=== PATIENT | male | born 1975 | race Caucasian/White ===

== ENCOUNTER → 2016-03-18 | Day surgery (SDC) | payer BC, OTHER ==
[~2016-03-18] MED LIST: ACETAMINOPHEN 325 MG TAB As Ordered ONE; ACETAMINOPHEN 500 MG TAB PO PRN; ACETYLCYSTEINE 20% 30 ML VIAL As Ordered ONE; ACETYLCYSTEINE 20% 30 ML VIAL XX ONE; ASCO25TA PO; FLON1SPR; GLYCOPYRROLATE INJ 0.2 MG/ML 2 ML VIAL As Ordered ONE; LIDOCAINE 2% INJ 100 MG/5 ML SDV (FOR ANES.) As Ordered ONE; LR 1,000 ML IV SCH; MIDAZOLAM INJ 2 MG/2 ML VIAL (J2250) As Ordered ONE; MULT1CHW39 PO; NEOSTIGMINE 1MG/ML 5 ML SYRINGE (J2710) As Ordered ONE; ONDANSETRON 4MG/2ML VIAL (J2405) As Ordered ONE; ONDANSETRON 4MG/2ML VIAL (J2405) IV PRN; PANT40TA2 PO; PROPOFOL 200 MG/20 ML VIAL As Ordered ONE; RANI15TA PO; ROCURONIUM BROMIDE 50 MG/5 ML VIAL As Ordered ONE; SING10TA32 PO; SYMB80INH INH; fentaNYL 100 MCG/2 ML INJECTION (J3010) As Ordered ONE
--- NOTE | 2016-03-18 10:26 | ROOR ---
Patient Name: Sam Yu Procedure Date: 03/18/2016 8:45 AM Date of : 1975 Age: 40 Gender: Male Note Status: Finalized Procedure: Upper GI endoscopy Indications: For therapy of Puckett's esophagus Providers: Lam DELGADO MD Referring MD: 1. No Referring Physician 1. No Referring Physician, Admin. Requesting Provider: Medicines: General Anesthesia Complications: No immediate complications. Procedure: Pre-Anesthesia Assessment: - The heart rate, respiratory rate, oxygen saturations, blood pressure, adequacy of pulmonary ventilation, and response to care were monitored throughout the procedure. The Endoscope was introduced through the mouth, and advanced to the second part of duodenum. The upper GI endoscopy was accomplished without difficulty. The patient tolerated the procedure well. 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 The maximum longitudinal extent of these mucosal changes was 4 cm in length. Circumferential radiofrequency ablation of Puckett's esophagus was performed using the Barrx 360 Express catheter and balloon-based endoscopic ablation system. With the endoscope in place, the position and extent of the Puckett's mucosa and the anatomic landmarks were noted. Endoscopic visualization identified an ablation site. A guidewire was passed down the biopsy channel of the endoscope. As the endoscope was withdrawn from the mouth, the guidewire was left in place. An auto-sizing radiofrequency ablation balloon catheter was passed transorally over the guidewire into the esophagus. The endoscope was introduced in a [id number] manner with the ablation catheter. Under direct endoscopic visualization, the balloon ablation catheter was positioned appropriately. The balloon was automatically inflated, and energy was applied. The balloon electrode was moved 4 cm distally, so that the proximal edge of the electrode was aligned with the distal edge of the ablation zone. The process of balloon inflation and ablation was repeated until the top of the gastric folds was reached. The ablation catheter and guidewire were removed, and the balloon was cleaned. The ablation zone was then cleaned of overlying coagulative debris using irrigation and suction via the endoscope and a cleaning cap. The guidewire was reinserted, and then the ablation catheter was reintroduced into the esophagus over the wire. The ablation catheter was positioned under direct endoscopic visualization so that the proximal edge of the electrode was at the proximal edge of the ablation zone. Reinflation and a second round of ablation were performed to re-treat the Puckett's epithelium already treated with the first round of ablation. The ablation catheter and guidewire were then removed. The areas of the esophagus where Puckett's mucosa had been ablated were then examined with the endoscope. Evidence of a prior Casey fundoplication was found in the cardia. This was characterized by healthy appearing mucosa. The examined duodenum was normal. Impression: - Esophageal mucosal changes secondary to established long-segment Puckett's disease. Treated with radiofrequency ablation. - A Casey fundoplication was found, characterized by healthy appearing mucosa. - Normal examined duodenum. - No specimens collected. Recommendation: - Continue present medications. - My Office will call you shortly to re-schedule for the next treatment session. Start a full liquid diet today. Eat a soft diet for one week. Continue your usual Reflux medication twice a day indefinitely. You may not need pain medications, but I would recommend you fill the scripts provided, just in case: 1) Viscous Lidocaine 2%- 10 ml every 4 hrs as needed for modeate chest pain. 2) Carafate suspension-10 ml every 6-8 hrs for 1 month. - (the script was sent to your pharmacy on file) Lam Delgado MD Lam DELGADO MD 03/18/2016 10:26:07 AM This report has been signed electronically. Number of Addenda: 0 Note Initiated On: 03/18/2016 8:45 AM Estimated Blood Loss: Estimated blood loss: none.
[2016-03-18 11:10] VITALS: BP 132/87
== END ==
LOC: M SDC 07:31
PROVIDERS: ATTEND Internal Medicine Gastroenterology
DX: K22.70 Barrett's esophagus without dysplasia (principal); K21.9 Gastro-esophageal reflux disease without esophagitis; J44.9 Chronic obstructive pulmonary disease, unspecified; Z87.891 Personal history of nicotine dependence
CPT/HCPCS: 43270; C1769; J2250; J2405; J2710; J3010

== ENCOUNTER → 2016-05-22 | Outpatient (CLI) | payer BC, OTHER ==
[~2016-05-22] MED LIST changes: -ACETAMINOPHEN 325 MG TAB As Ordered ONE; -ACETAMINOPHEN 500 MG TAB PO PRN; -ACETYLCYSTEINE 20% 30 ML VIAL As Ordered ONE; -ACETYLCYSTEINE 20% 30 ML VIAL XX ONE; -GLYCOPYRROLATE INJ 0.2 MG/ML 2 ML VIAL As Ordered ONE; -LIDOCAINE 2% INJ 100 MG/5 ML SDV (FOR ANES.) As Ordered ONE; -LR 1,000 ML IV SCH; -MIDAZOLAM INJ 2 MG/2 ML VIAL (J2250) As Ordered ONE; -NEOSTIGMINE 1MG/ML 5 ML SYRINGE (J2710) As Ordered ONE; -ONDANSETRON 4MG/2ML VIAL (J2405) As Ordered ONE; -ONDANSETRON 4MG/2ML VIAL (J2405) IV PRN; -PROPOFOL 200 MG/20 ML VIAL As Ordered ONE; -ROCURONIUM BROMIDE 50 MG/5 ML VIAL As Ordered ONE; -fentaNYL 100 MCG/2 ML INJECTION (J3010) As Ordered ONE
--- NOTE | 2016-05-24 09:40 | REP ---
MRI LUMBAR SPINE WITHOUT CONTRAST: 05/22/2016 CLINICAL HISTORY: Acute right sided low back pain, sciatica. COMPARISON: X-ray 04/21/2016 and 05/13/2005. TECHNIQUE: Sagittal T1, T2 and STIR images with axial T1-T2 sequences also. FINDINGS: Slight loss of lordosis on the sagittal sequences. There is disc space narrowing at the L3-4 with slight loss of disc water signal. There is more disc space narrowing and loss of disc water signal to a greater extent respectively at L4-5 and L5-S1. The L2-3, L1-2 levels and above maintain height and water signal. Vertebral body heights and marrow signal are normal throughout the lumbar, lower thoracic spine and first two sacral segments. The conus terminates at the T12-L1 level. T10-11, T11-12, T12-L1, L1-2 and L2-3 disc levels show no significant disc bulge herniation and no spinal or foraminal stenosis. At L3-4, there is a mild broad-based disc bulge abutting the L4 nerve roots in the central canal but not significantly displacing them. There is ample cross-sectional area of the canal and foramina are showing only some loss of perineural fat without nerve root compression. Hypertrophic facet changes are present at that level. At L4-5, there is a broad-based disc bulge but a right paracentral disc protrusion, which abuts and displaces the right L5 nerve root in the canal. The left L5 nerve root is neither abutting or displaced. The cross-sectional area of the central canal is ample. The foramina show some loss of perineural fat bilaterally without nerve root compression. No facet arthropathy is again seen. At L5-S1, there is a minimal broad-based disc bulge, which abuts the ventral thecal sac but does not abut or displace the S1 nerve roots, causes no central canal stenosis and for which the foramina show adequate perineural fat on the right, while the left showed loss of perineural fat and some mild nerve root compression for the L5 root in the foramen on the left. Facet arthropathy noted. No other findings. IMPRESSION: 1. Multilevel degenerative disc disease from L3-4 through L5-S1. The greatest central canal finding is the disc protrusion right, paracentral at L4-5 abutting and displacing the L5 nerve root on the right side but the cross-sectional area of the canal ample. The foramina are marginally adequate with loss of perineural fat but no nerve root compression. 2. Mild disc bulge broad-based at L5-S1 not causing central canal stenosis with the right foramen adequate and the left foramen with loss of perineural fat and slight compression of the nerve root possible. 3. The L3-4 level shows a disc bulge abutting the L4 roots but not causing spinal or foraminal stenosis. Levels above intact. Signed by Santino Carbone MD 05/24/2016 05:10 P
== END ==
LOC: M RAD 08:51
PROVIDERS: ATTEND Physician Assistant
DX: M51.36 Other intervertebral disc degeneration, lumbar region (principal); M51.26 Other intervertebral disc displacement, lumbar region

== ENCOUNTER → 2016-06-01 | Outpatient (REF) | payer OTHER ==
[2016-06-01 18:03] LABS: ALBUMIN 3.9 GM/DL (3.2-5.2); ALBUMIN/GLOBULIN RATIO 1.56 (1.00-1.93); ALKALINE PHOSPHATASE 65 U/L (45-117); ALT/SGPT 39 U/L (12-78); ANION GAP 6 MEQ/L (8-16); AST/SGOT 31 U/L (15-37); BILIRUBIN,TOTAL 0.4 MG/DL (0.2-1.0); BLOOD UREA NITROGEN 14 MG/DL (7-18); CALCIUM LEVEL 8.2 MG/DL (8.5-10.1); CARBON DIOXIDE LEVEL 28 MEQ/L (21-32); CHLORIDE LEVEL 106 MEQ/L (98-107); CREATININE FOR GFR 0.88 MG/DL (0.70-1.30); GLOMERULAR FILTRATION RATE > 60.0 (>60); GLUCOSE, FASTING 99 MG/DL (70-105); POTASSIUM SERUM 4.5 MEQ/L (3.5-5.1); SODIUM LEVEL 140 MEQ/L (136-145); TOTAL PROTEIN 6.4 GM/DL (6.4-8.2)
[2016-06-01 18:20] LABS: BASO % 0.6 % (0.0-1.0); EOS # 0.2 K/mm3 (0.0-0.50); EOS % 2.8 % (0.0-3.0); LARGE UNSTAINED CELL # 0.1 K/mm3 (0.0-0.4); LYMPH # 2.5 K/mm3 (1.5-4.5); LYMPH % 38.7 % (24.0-44.0); MEAN CORPUSCULAR HEMOGLOBIN 29.9 pg (27.0-33.0); MEAN CORPUSCULAR HGB CONC 32.1 g/dl (32.0-36.5); MEAN CORPUSCULAR VOLUME 93.1 fl (80.0-96.0); MONO # 0.4 K/mm3 (0.0-0.8); MONO % 6.3 % (0.0-5.0); NEUTROPHILS # 3.2 K/mm3 (1.8-7.7); NEUTROPHILS % 49.5 % (36.0-66.0); PLATELET COUNT, AUTOMATED 205 k/mm3 (150-450); RED CELL DISTRIBUTION WIDTH 12.5 % (11.5-14.5); WHITE BLOOD COUNT 6.4 K/mm3 (4.0-10.0)
== END ==
LOC: M SFHCCAPE 07:00
PROVIDERS: ATTEND Physician Assistant
DX: M54.41 Lumbago with sciatica, right side (principal)

== ENCOUNTER 2016-10-01 14:36 | Emergency (ER) | payer BC, OTHER ==
[~2016-10-01] VITALS: Ht 175.3 cm; Wt 104.5 kg
[2016-10-01] MEDS ORDERED: AMOX500C PO (14:45)
--- NOTE | 2016-10-01 16:08 | REP ---
Left forearm two views : There is no fracture or dislocation. Mineralization and joint spaces are normal. There are no calcifications or foreign bodies. Impression: Negative left forearm . Signed by Parrish Mckeon MD 10/01/2016 03:59 P
[2016-10-01] MEDS ORDERED: LIDOCAINE 1% MDV 20ML VIAL SC ONE (17:30)
[2016-10-01 18:52] VITALS: BP 146/96
[2016-11-30] MEDS ORDERED: MULT1TAB10 PO (13:12)
== END 2016-10-01 18:59 | disposition home or self-care (01) ==
LOC: M ED 14:36
DX: S81.812A Laceration without foreign body, left lower leg, initial encounter (principal); W11.XXXA Fall on and from ladder, initial encounter; Y92.89 Other specified places as the place of occurrence of the external cause; Y93.89 Activity, other specified; Y99.0 Civilian activity done for income or pay; J45.909 Unspecified asthma, uncomplicated; K21.9 Gastro-esophageal reflux disease without esophagitis; Z79.51 Long term (current) use of inhaled steroids; Z79.899 Other long term (current) drug therapy; Z90.89 Acquired absence of other organs

== ENCOUNTER 2016-12-01 06:54 | Day surgery (SDC) | payer BC, OTHER ==
[~2016-12-01] VITALS: Ht 175.3 cm; Wt 111.1 kg
[~2016-12-01 06:54] MED LIST changes: +AMOX500C PO; +LIDOCAINE 2% INJ 100 MG/5 ML SDV (FOR ANES.) As Ordered ONE; +MULT1TAB10 PO; +ONDANSETRON 4MG/2ML VIAL (J2405) As Ordered ONE; +PROPOFOL 200 MG/20 ML VIAL As Ordered ONE; +ROCURONIUM BROMIDE 50 MG/5 ML VIAL As Ordered ONE; +dexameTHASONE 4 MG/ML 1ML VIAL (J1100) As Ordered ONE
[2016-12-01] MEDS ORDERED: LR 500 ML IV ONE (07:00)
[2016-12-01] MEDS ORDERED: LIDOCAINE 1% MDV 20ML VIAL SC ONE (07:15)
--- NOTE | 2016-12-01 08:25 | ROOR ---
Patient Name: Sam Yu Procedure Date: 12/01/2016 7:35 AM Date of : 1975 Age: 41 Room: Main OR Gender: Male Note Status: Finalized Procedure: Upper GI endoscopy Indications: For therapy of Puckett's esophagus Providers: Lam DELGADO MD Referring MD: ALECIA GARZON Requesting Provider: Medicines: General Anesthesia Complications: No immediate complications. Procedure: Pre-Anesthesia Assessment: - The heart rate, respiratory rate, oxygen saturations, blood pressure, adequacy of pulmonary ventilation, and response to care were monitored throughout the procedure. The Endoscope was introduced through the mouth, and advanced to the second part of duodenum. The upper GI endoscopy was accomplished without difficulty. The patient tolerated the procedure well. Findings: There were esophageal mucosal changes consistent with short-segment Puckett's esophagus present in the lower third of the esophagus. The maximum longitudinal extent of these mucosal changes was 3 cm in length. Circumferential radiofrequency ablation of Puckett's esophagus was performed using the Barrx 360 Express catheter and balloon-based endoscopic ablation system. With the endoscope in place, the position and extent of the Puckett's mucosa and the anatomic landmarks including proximal and distal extent of Puckett's mucosa were noted. Endoscopic visualization identified an ablation site including the entire visible Puckett's segment. A guidewire was passed down the biopsy channel of the endoscope. As the endoscope was withdrawn from the mouth, the guidewire was left in place. An auto-sizing radiofrequency ablation balloon catheter was passed transorally over the guidewire into the esophagus. The endoscope was introduced in a [id number]-[id number] manner with the ablation catheter. Under direct endoscopic visualization, the balloon ablation catheter was positioned so that the proximal edge of the electrode was slightly above the proximal edge of the Puckett's mucosa. The balloon was automatically inflated, and energy was applied at 10 J/cm2. The balloon electrode was moved 4 cm distally, so that the proximal edge of the electrode was aligned with the distal edge of the ablation zone. The process of balloon inflation and ablation was repeated until the top of the gastric folds was reached. The ablation catheter and guidewire were removed, and the balloon was cleaned. The ablation zone was then cleaned of overlying coagulative debris using irrigation and suction via the endoscope and a cleaning cap. The guidewire was reinserted, and then the ablation catheter was reintroduced into the esophagus over the wire. The ablation catheter was positioned under direct endoscopic visualization so that the proximal edge of the electrode was at the proximal edge of the ablation zone. Reinflation and a second round of ablation were performed with the application of 10 J/cm2 to re-treat the Puckett's epithelium already treated with the first round of ablation. The ablation catheter and guidewire were then removed. The areas of the esophagus where Puckett's mucosa had been ablated were then examined with the endoscope. There was a small amount of unablated Puckett's esophagus present. Evidence of a fundoplication was found in the cardia. The wrap appeared intact. The exam was otherwise without abnormality. Impression: - Esophageal mucosal changes consistent with short-segment Puckett's esophagus. (1 cm segment in crural pinch, 2 cm segment from 39-41 cm with tiny scattered islands). This is a 50-60% improvement over past therapy. Treated with radiofrequency ablation. - A fundoplication was found. The wrap appears intact. - The examination was otherwise normal. - No specimens collected. Recommendation: - Repeat upper endoscopy in 2 months for retreatment. - My office will call you to reschedule the procedure. Lam Delgado MD Lam DELGADO MD 12/01/2016 8:25:00 AM This report has been signed electronically. Number of Addenda: 0 Note Initiated On: 12/01/2016 7:35 AM Estimated Blood Loss: Estimated blood loss: none.
[2016-12-01] MEDS ORDERED: NEOSTIGMINE 10 MG/10 ML VIAL (J2710) As Ordered ONE (08:32)
[2016-12-01] MEDS ORDERED: GLYCOPYRROLATE INJ 0.2 MG/ML 2 ML VIAL As Ordered ONE (08:32)
[2016-12-01] MEDS ORDERED: MIDAZOLAM INJ 2 MG/2 ML VIAL (J2250) As Ordered ONE (08:32)
[2016-12-01] MEDS ORDERED: fentaNYL 100 MCG/2 ML INJECTION (J3010) As Ordered ONE (08:32)
[2016-12-01 09:00] VITALS: BP 123/83
[2016-12-01] MEDS ORDERED: LR 1,000 ML IV SCH (09:00)
== END 2016-12-01 09:13 | disposition home or self-care (01) ==
LOC: M SDC 06:54
PROVIDERS: ATTEND Internal Medicine Gastroenterology
DX: K22.70 Barrett's esophagus without dysplasia (principal); M54.9 Dorsalgia, unspecified; Z98.890 Other specified postprocedural states; Z72.0 Tobacco use
CPT/HCPCS: 43499; J1100; J2250; J2405; J2710; J3010

== ENCOUNTER 2017-03-09 11:26 | Day surgery (SDC) | payer BC, OTHER ==
[2017-03-09] MEDS: LR 1,000 ML IV (11:57)
[2017-03-09] MEDS ORDERED: fentaNYL 100 MCG/2 ML INJECTION (J3010) As Ordered (13:38)
[2017-03-09] MEDS ORDERED: SUCCINYLCHOLINE 100 MG/5 ML SYRINGE (J0330) As Ordered (13:38)
[2017-03-09] MEDS ORDERED: PROPOFOL 200 MG/20 ML VIAL As Ordered ×2 (13:38→13:39)
[2017-03-09] MEDS ORDERED: MIDAZOLAM INJ 2 MG/2 ML VIAL (J2250) As Ordered (13:38)
[2017-03-09] MEDS ORDERED: ROCURONIUM BROMIDE 50 MG/5 ML VIAL As Ordered (13:38)
[2017-03-09] MEDS ORDERED: LIDOCAINE 2% INJ 100 MG/5 ML SDV (FOR ANES.) As Ordered (13:38)
[2017-03-09] MEDS ORDERED: ONDANSETRON 4MG/2ML VIAL (J2405) As Ordered (13:44)
[2017-03-09] MEDS ORDERED: ALBUTEROL SULFATE 2.5 MG/0.5 ML INH NEB SOLN As Ordered (14:15)
[2017-03-09] MEDS: ALBUTEROL SULFATE 2.5 MG/0.5 ML INH NEB SOLN INH (14:15)
[2017-03-09] MEDS ORDERED: fentaNYL 100 MCG/2 ML INJECTION (J3010) IV (14:33)
[2017-03-09] MEDS ORDERED: ONDANSETRON 4MG/2ML VIAL (J2405) IV (14:33)
[2017-03-09] MEDS ORDERED: LR 1,000 ML IV (14:33)
== END 2017-03-09 15:03 | disposition home or self-care (01) ==
LOC: M SDC 11:26
DX: K22.70 Barrett's esophagus without dysplasia (principal); K44.9 Diaphragmatic hernia without obstruction or gangrene; M54.9 Dorsalgia, unspecified; J45.909 Unspecified asthma, uncomplicated; Z79.899 Other long term (current) drug therapy; Z87.891 Personal history of nicotine dependence
CPT/HCPCS: 43270

== ENCOUNTER → 2017-07-26 | Day surgery (SDC) | payer BC, OTHER ==
[~2017-07-26] MED LIST changes: +ACETYLCYSTEINE 20% 30 ML VIAL As Ordered; -AMOX500C PO; -ASCO25TA PO; -FLON1SPR; +LIDOCAINE 2% INJ 100 MG/5 ML SDV (FOR ANES.) As Ordered; -LIDOCAINE 2% INJ 100 MG/5 ML SDV (FOR ANES.) As Ordered ONE; -MULT1CHW39 PO; -MULT1TAB10 PO; -ONDANSETRON 4MG/2ML VIAL (J2405) As Ordered ONE; -PANT40TA2 PO; +PROPOFOL 200 MG/20 ML VIAL As Ordered; -PROPOFOL 200 MG/20 ML VIAL As Ordered ONE; -RANI15TA PO; -ROCURONIUM BROMIDE 50 MG/5 ML VIAL As Ordered ONE; -SING10TA32 PO; -SYMB80INH INH; -dexameTHASONE 4 MG/ML 1ML VIAL (J1100) As Ordered ONE
[2017-07-26] MEDS: NS 1,000 ML IV (15:03)
== END | disposition home or self-care (01) ==
LOC: M OPP 14:37
DX: Z09 Encounter for follow-up examination after completed treatment for conditions other than malignant neoplasm (principal); K22.70 Barrett's esophagus without dysplasia; K22.8 Other specified diseases of esophagus; Z98.890 Other specified postprocedural states; K21.9 Gastro-esophageal reflux disease without esophagitis; L40.9 Psoriasis, unspecified; Z79.899 Other long term (current) drug therapy
CPT/HCPCS: 43239

== ENCOUNTER → 2018-08-30 | Outpatient (REF) | payer OTHER ==
[~2018-08-30] MED LIST changes: -ACETYLCYSTEINE 20% 30 ML VIAL As Ordered; +AMOX500C PO; +AZEL1SPR3; +CLAR1TAB2 PO; +FLON1SPR; -LIDOCAINE 2% INJ 100 MG/5 ML SDV (FOR ANES.) As Ordered; +MULT1TAB10 PO; +MULT200T7 PO; +PANT40TA3 PO; -PROPOFOL 200 MG/20 ML VIAL As Ordered; +RANI15TA PO; +SING10TA32 PO; +SYMB80INH INH; +VITA1TAB23 PO; +ZINC30TA3 PO
[2018-08-30 17:11] LABS: BASO # 0.1 10^3/uL (0.0-0.2); EOS # 0.2 10^3/uL (0.0-0.50); HEMATOCRIT 46.4 % (42.0-52.0); HEMOGLOBIN 15.4 g/dl (13.5-17.5); LYMPH # 2.3 10^3/uL (1.5-4.5); LYMPH % 38.2 % (24.0-44.0); MEAN CORPUSCULAR HEMOGLOBIN 30.6 pg (27.0-33.0); MEAN CORPUSCULAR HGB CONC 33.2 g/dl (32.0-36.5); MEAN CORPUSCULAR VOLUME 92.1 fl (80.0-96.0); MONO # 0.6 10^3/uL (0.0-0.8); MONO % 10.3 % (0.0-5.0); NEUTROPHILS # 2.9 10^3/uL (1.8-7.7); NEUTROPHILS % 47.2 % (36.0-66.0); PLATELET COUNT, AUTOMATED 246 10^3/uL (150-450); RED BLOOD COUNT 5.04 10^6/uL (4.30-6.10)
[2018-08-30 17:18] LABS: ALBUMIN 4.2 GM/DL (3.2-5.2); ALT/SGPT 44 U/L (12-78); BILIRUBIN,TOTAL 0.6 MG/DL (0.2-1.0); BLOOD UREA NITROGEN 19 MG/DL (7-18); CALCIUM LEVEL 8.9 MG/DL (8.5-10.1); CARBON DIOXIDE LEVEL 27 MEQ/L (21-32); CHLORIDE LEVEL 106 MEQ/L (98-107); CHOLESTEROL LEVEL 232 MG/DL (<200); CHOLESTEROL RISK RATIO 3.803 (<5); GLOMERULAR FILTRATION RATE > 60.0 (>60); GLUCOSE, FASTING 89 MG/DL (70-100); HDL CHOLESTEROL 61 MG/DL (>40); LDL CHOLESTEROL 160 MG/DL (<100); NON-HDL-C 171 MG/DL; POTASSIUM SERUM 4.3 MEQ/L (3.5-5.1); SODIUM LEVEL 140 MEQ/L (136-145); TOTAL PROTEIN 7.1 GM/DL (6.4-8.2); TRIGLYCERIDES LEVEL 55 MG/DL (<150)
== END ==
LOC: M SFHCCAPE 07:56
PROVIDERS: ATTEND Physician Assistant
DX: Z13.6 Encounter for screening for cardiovascular disorders (principal)

== ENCOUNTER → 2020-02-28 | Outpatient (REF) | payer OTHER ==
[~2020-02-28] MED LIST changes: +PANT40TA29 PO; -PANT40TA3 PO; -VITA1TAB23 PO; +VITA250T20 PO
== END ==
LOC: M SFHCCLAY 15:28
PROVIDERS: ATTEND Physician Assistant
DX: R50.9 Fever, unspecified (principal); R05 Cough

== ENCOUNTER 2020-06-20 08:53 | Emergency (ER) | payer BC, OTHER ==
[~2020-06-20] VITALS: Ht 175.3 cm; Wt 114.6 kg
[2020-06-20 08:59] VITALS: BP 141/86
[2020-06-20] MEDS ORDERED: PANT20TA6 (09:05)
[2020-06-20] MEDS ORDERED: CEPH500C PO (11:20)
== END 2020-06-20 11:58 | disposition home or self-care (01) ==
LOC: M ED 08:53
DX: Z48.00 Encounter for change or removal of nonsurgical wound dressing (principal); S81.801D Unspecified open wound, right lower leg, subsequent encounter; Y92.9 Unspecified place or not applicable; Y93.9 Activity, unspecified; Y99.9 Unspecified external cause status; Z79.899 Other long term (current) drug therapy

== ENCOUNTER → 2021-02-25 | Outpatient (REF) | payer OTHER ==
[~2021-02-25] MED LIST changes: +CEPH500C PO; +PANT20TA6
== END ==
LOC: M SFHCCAPE 10:53
PROVIDERS: ATTEND Physician Assistant
DX: J22 Unspecified acute lower respiratory infection (principal)

== ENCOUNTER → 2021-09-14 | Outpatient (CLI) | payer BC, OTHER | LOC: M RAD 09:29 | PROVIDERS: ATTEND Physician Assistant | DX: R19.07 Generalized intra-abdominal and pelvic swelling, mass and lump (principal) ==